=== PATIENT | female | born 1990 | race Caucasian/White ===

== ENCOUNTER → 2024-06-28 | Outpatient (REF) | payer OTHER ==
[~2024-06-28] MED LIST: PREN200C PO
== END ==
LOC: M LAB REF 17:26
PROVIDERS: ATTEND Internal Medicine
DX: N39.0 Urinary tract infection, site not specified (principal)

== ENCOUNTER → 2024-11-12 | Outpatient (REF) | payer OTHER ==
[~2024-11-12] MED LIST changes: +CIPR-249 PO; +CIPR250T3 PO; +OXYB5TAB14 PO; +PYRI1TAB5 PO
[2024-11-16 15:08] LABS: HPV APTIMA Detected (Not Detected)
== END ==
LOC: M PLALAB 11:47
PROVIDERS: ATTEND Student in an Organized Health Care Education/Training Program
DX: Z01.419 Encounter for gynecological examination (general) (routine) without abnormal findings (principal)
CPT/HCPCS: 87070; 87077; 87624; G0123